=== PATIENT | male | born 1940 | race Caucasian/White ===

== ENCOUNTER 2016-08-26 05:15 | Day surgery (SDC) | payer MEDICARE, OTHER ==
[2016-08-24 14:09] LABS: BASOPHILS 0.6 % (0.0-2.0); EOSINOPHILS 2.1 % (0-7); HEMOGLOBIN 16.5 g/dL (13.5-17.5); IMMATURE GRANULOCYTES 0.3 % (0-5); LYMPHOCYTES 26.3 % (15-50); MCH 32.5 pg (26.0-34.0); MCHC 33.7 g/dL (31.0-37.0); MCV 96.6 fL (80.0-100.0); MEAN PLATELET VOLUME 10.5 fL (7.4-10.4); MONOCYTES 11.3 % (2-11); NEUTROPHILS 59.4 % (40-80); PLATELET COUNT 187 10x3/uL (130-400); RBC 5.07 10x6/uL (4.20-6.10); WBC 7.3 10x3/uL (4.8-10.8)
[2016-08-24 14:17] LABS: CALC OSMOLALITY 279 mosm/kg (275-300); CALCIUM 9.6 mg/dL (8.5-10.1); CARBON DIOXIDE 33.1 mmol/L (21.0-32.0); CHLORIDE - SERUM 104 mmol/L (98-107); CREATININE - SERUM 0.9 mg/dL (0.6-1.3); GLUCOSE 100 mg/dL (74-106); POTASSIUM - SERUM 4.5 mmol/L (3.5-5.1); SODIUM 141 mmol/L (136-145); UREA NITROGEN 11 mg/dL (7-18); eGFR NON AFRICAN AMERICAN 87 mL/min (90-120)
[~2016-08-26] VITALS: Ht 175.3 cm; Wt 69.4 kg
[~2016-08-26 05:15] MED LIST: PROAIR HFA8.5 GM INH; SYMBICORT 16010.2 GM INH
[2016-08-26 09:31] VITALS: BP 136/81; Ht 175.3 cm; Wt 69.4 kg
[2016-08-26] MEDS ORDERED: HYDROCODONE-APA1 TAB PO (13:03)
--- NOTE | 2016-08-26 15:10 | NUR ---
VOIDED WITHOUT DIFFICULTY. IV REMOVED INTACT. DISCHARGE INSTRUCTIONS AND RX GIVEN, VOICED UNDERSTANDING. DISCHARGED HOME VIA WC.
--- NOTE | 2016-09-03 16:25 | OP ---
PATIENT NAME: SUMIT SERNA MEDICAL RECORD: [id number] :40 LOCATION:[facility] ADMISSION DATE: SURGEON: REUBEN GREWAL MD DATE OF OPERATION: 08/26/2016 PREOPERATIVE DIAGNOSES: 1. Right inguinal hernia. 2. Tobacco dependence. 3. Chronic obstructive pulmonary disease. POSTOPERATIVE DIAGNOSES: 1. Right inguinal hernia. 2. Tobacco dependence. 3. Chronic obstructive pulmonary disease. PROCEDURE: Right inguinal hernia repair with medium PHS mesh. SURGEON: Reuben Grewal MD REPORT OF PROCEDURE: The patient's right groin was prepped and draped in sterile fashion. An oblique incision was made above the inguinal ligament. Electrocautery was used to dissect through the subcutaneous tissues down to the external oblique fascia. This fascia was incised with a 15-blade and then opened up to the external ring using Metzenbaum scissors. The spermatic cord was elevated and a [place] was placed around it. The patient had a small indirect hernia defect. This was dissected free from the spermatic cord. The patient also had a couple of cord lipomas and these were dissected free and high ligated. The hernia defect had no contents within it at this time. It was placed back into the abdominal cavity. We then opened up the preperitoneal space of [place] in all directions. A medium PHS mesh was inserted and sutured down on all 4 sides using multiple interrupted 0 Vicryls. The wound was then irrigated out with normal saline and care was taken to make sure there was no sign of any active bleeding. We inspected closely to see if there was an ilioinguinal nerve, but I never saw it in our field. The external oblique fascia was then closed with running 2-0 Vicryl, Gloria's was closed with interrupted 3-0 Vicryls and the skin was closed with running subcutaneous 5-0 Monocryl. A 10 mL of 0.25% Marcaine with epinephrine were infused into the surrounding tissues and the wound was dressed appropriately. COMPLICATIONS: None. CONDITION: Stable. ANESTHESIA: General endotracheal and local. BLOOD LOSS: Minimal. TRANSINT:[id number] Voice Confirmation ID: [id number] DOCUMENT ID: [id number] OPERATIVE REPORT [id number] SUMIT SERNAREUBEN THOMAS MD at [id number] CC: ISABELLA DIAZ MD [id number] DICTATION DATE: 08/26/16 1302 PLUMBING MECHANIC: 08/26/16 1547 [facility] 08/26/16 [id number] [place] [address]
== END 2016-08-26 15:10 | disposition home or self-care (01) ==
LOC: D.OPS 05:15 → D.PAN 11:15 → D.OPS 12:45
PROVIDERS: Surgery
DX: K40.90 Unilateral inguinal hernia, without obstruction or gangrene, not specified as recurrent (principal); F17.200 Nicotine dependence, unspecified, uncomplicated; J44.9 Chronic obstructive pulmonary disease, unspecified

== ENCOUNTER 2021-01-15 13:00 | Outpatient (CLI) | payer MEDICARE, OTHER ==
[2016-08-26 09:31] VITALS: BMI 22.6
[~2021-01-15 13:00] MED LIST changes: +HYDROCODONE-APA1 TAB PO
== END 2021-01-15 23:59 | disposition home or self-care (01) ==
LOC: D.MRI 13:00
PROVIDERS: ATTEND Neurological Surgery
DX: G50.0 Trigeminal neuralgia (principal)